=== PATIENT | female | born 1990 | race Caucasian/White ===

== ENCOUNTER 2017-09-25 07:19 | Day surgery (SDC) | payer OTHER ==
[~2017-09-25 07:19] MED LIST: Buffered Lidocaine 0.9% SYRIN* 5 ML/SYR SYRINGE INTRADERM ONE; Dexamethasone IV* 4 MG/ML 1 ML (4 MG) IV SLOW PU ONE; Famotidine IV* 10 MG/ML 2 ML (20 mg) IV ONE
[2017-09-25] MEDS ORDERED: Buffered Lidocaine 0.9% SYRIN* 5 ML/SYR SYRINGE ONE (07:35)
[2017-09-25] MEDS ORDERED: ceFAZolin 2 GM PREMIX (*) 2 GM/50 ML BAG IVPB ONE (07:35)
[2017-09-25] MEDS ORDERED: Famotidine IV* 10 MG/ML 2 ML (20 mg) ONE (07:35)
[2017-09-25] MEDS ORDERED: Dexamethasone IV* 4 MG/ML 1 ML (4 MG) ONE (07:35)
[2017-09-25] MEDS ORDERED: Ketorolac INJ* 30 MG/ML 1 ML VIAL ONE (07:35)
[2017-09-25] MEDS ORDERED: fentaNYL* 50 MCG/ML 5 ML VIAL (250 MCG VIAL) ONE (08:18)
[2017-09-25] MEDS ORDERED: Atracurium* 10 MG/ML 10 ML VIAL ONE (08:18)
[2017-09-25] MEDS ORDERED: Propofol* 10 MG/ML 20 ML BTL IV PUSH ONE (08:18)
[2017-09-25] MEDS ORDERED: Ondansetron INJ* 2 MG/ML VIAL ONE (08:18)
[2017-09-25] MEDS ORDERED: Midazolam* 1 MG/ML 10 ML VIAL (10 MG) ONE (08:18)
[2017-09-25] MEDS ORDERED: Lidocaine 2% PF * 5 ML VIAL ONE (08:19)
[2017-09-25] MEDS ORDERED: EPHEDrine (Pressors)* 50 MG/ML VIAL ONE (08:20)
[2017-09-25] MEDS ORDERED: Bupivacaine 0.25% SDV* 30 ML ONE (08:40)
[2017-09-25] MEDS ORDERED: Scopolamine 1.5 mg* PATCH ONE (08:40)
[2017-09-25] MEDS ORDERED: HYDROmorphone INJ* 1 MG/ML CARPUJECT SYRINGE IV PRN (08:41)
[2017-09-25] MEDS ORDERED: fentaNYL* 50 MCG/ML 2 ML VIAL (100 MCG VIAL) IV PRN (08:41)
[2017-09-25] MEDS ORDERED: DiMENhydriNATE IV* 50 MG/ML VIAL IV PUSH PRN (08:41)
[2017-09-25] MEDS ORDERED: Naloxone* 0.4 MG/ML 1 ML VIAL IV PRN (08:41)
[2017-09-25] MEDS ORDERED: oxyCODONE/Acetamin 5/325 MG* TAB PO PRN ×2 (08:41→09:57)
[2017-09-25] MEDS ORDERED: Ondansetron INJ* 2 MG/ML VIAL IV PRN (08:41)
[2017-09-25] MEDS ORDERED: Scopolamine 1.5 mg* PATCH TRANSDERM SCH (09:00)
[2017-09-25] MEDS ORDERED: Scopolamine PATCH Remove* 1 NOTE MISC PATCH OFF SCH (09:00)
[2017-09-25] MEDS ORDERED: fentaNYL* 50 MCG/ML 2 ML VIAL (100 MCG VIAL) ONE (09:08)
[2017-09-25] MEDS ORDERED: Glycopyrrolate IV* 0.2 MG/ML 1 ML VIAL ONE (09:32)
[2017-09-25] MEDS ORDERED: Neostigmine Methylsulfate* 2 MG/2 ML SYRINGE ONE (09:32)
[2017-09-25] MEDS ORDERED: oxyCODONE/Acetamin 5/325 MG* TAB ONE (10:08)
[2017-09-25 11:10] VITALS: BP 110/66
--- NOTE | 2017-09-26 00:31 | OP ---
CC: Yesi Macias NP * DATE OF OPERATION: 09/25/17 - SDS DATE OF : 89 SURGEON: Trevor Owens MD ENTRY EXAMINER: PAVEL Jung ANESTHESIOLOGIST: Dr. Lynch. ANESTHESIA: General anesthetic, local infiltration. PRE-OP DIAGNOSIS: Symptomatic cholelithiasis. POST-OP DIAGNOSIS: Symptomatic cholelithiasis. OPERATIVE PROCEDURE: Laparoscopic cholecystectomy. DESCRIPTION OF PROCEDURE: The patient was supine on the operating table. After adequate general anesthetic, compression stockings, Emelia Hugger warmer and intravenous antibiotics, the abdomen was prepped with antiseptic, draped in a sterile fashion. Local infiltrative anesthesia was administered and right upper quadrant incision was created. A 5-mm Visiport cannula was placed and insufflation was carried out with carbon dioxide. Additional cannulae were placed under direct vision; 5-mm supraumbilical and right anterior axillary line and 12-mm subxiphoid, these were all placed through small stab wounds under direct vision. Gallbladder was tented upward, areolar tissue was taken down off the cystic duct and cystic artery, which were readily identified, clipped and divided. The common duct was visualized and kept out of harm's way. The gallbladder was taken off the liver bed without any difficulty. There was no spillage. The gallbladder was removed through the subxiphoid port without any spillage. The incisions were closed with 5-0 Vicryl followed by Steri-Strips. Hemostasis was good. There were no complications. No drains. Pathologic specimen is gall-bladder. Sponge and instrument counts correct. Estimated blood loss less than 20 mL. [id number]/[facility] #: [id number] [facility]
== END 2017-09-25 11:01 | disposition home or self-care (01) ==
LOC: OR 07:19
PROVIDERS: ATTEND Surgery
DX: K80.10 Calculus of gallbladder with chronic cholecystitis without obstruction (principal); Z87.891 Personal history of nicotine dependence
CPT/HCPCS: 81025; 88304; A9270-GY; J0690; J1100; J1885; J2250; J2405; J2704; J3010

== ENCOUNTER 2019-02-03 18:01 | Inpatient (IN) | payer OTHER ==
[2019-02-03 18:57] LABS: Urine Benzodiazepine Screen None Detected (None Detect); Urine Opiates Screen None Detected (None Detect)
[2019-02-03] MEDS ORDERED: Promethazine INJ(RESTRICTED)* 25 MG/ML 1 ML VIAL IV ONE (19:38)
[2019-02-03] MEDS ORDERED: Nalbuphine* 10 MG/ML 1 ML VIAL IV ONE (19:38)
[2019-02-03] MEDS ORDERED: Dinoprostone* 10 MG VAG.SUPP VAGINAL ONE (19:38)
[2019-02-03] MEDS ORDERED: Buffered Lidocaine 1% SYRIN* 1 ML/SYRINGE INTRADERM ONE (19:38)
[2019-02-03] MEDS ORDERED: Lactated Ringers 1000 ML Bag* 1,000 ML IV ONE (19:38)
--- NOTE | 2019-02-03 19:53 | HP ---
General Information - Reason for Visit 28yo, , IUP@40+6, here for cervical ripening/IOL - General Information Maternal Age: 28 Grav: 2 Para: 1 SAB: 0 IEA: 0 Estimated Due Date: 01/28/19 Determined By: LMP Gestational Age in Weeks/Days: 40+6 Maternal Blood Type and Rh: O Positive - Results this Serology/RPR Result: Non-Reactive Rubella Result: Immune HBsAg Result: Negative HIV Result: Negative GBS Culture Result: Positive Past Medical History Delivery History: Hx Complicated Vaginal Delivery Delivery History Comment: G1 complicated by arrhythmia Pertinent Past Medical History: See Records - Obesity (BMI 34.1), GERD , herniated disc (lumbar) Past Medical History Comment: Depression/anxiety Pertinent Past Surgical History: See Records Past Surgical History Comment: Tonsillectomy Tympanostomy tubes Cholecystectomy Pertinent Family History: See Records Family History Comment: HTN Brother - MVA age 18 ID Breast cancer - Antepartal Records Antepartal Records: Reviewed, Complicated by: - Hip pain, GBS positive , + THC, Review of Systems CV Complaint: No Respiratory: Shortness of Breath: No Gastrointestinal: No Nausea/Vomiting, Normal Bowel Movement Genitourinary: No Dysuria, No Bleeding, No Leaking Fluid Musculoskeletal: No Complaint, No Epigastric Pain Neurological: No Headache, No Visual Changes Movement: Normal Exam Allergies/Adverse Reactions: Allergies MS Benzalkonium Chloride [From Oragel Mouth-Aid] Allergy (Verified 09/25/17 07: 44) Swelling Of Face,Lips,& Throat MS Benzocaine [From Oragel Mouth-Aid] Allergy (Verified 09/25/17 07:44) Swelling Of Face,Lips,& Throat MS Lactose Intolerance (GI) [Lactose Intolerance (GI)] Allergy (Verified 07:44) GI Upset MS Sulfa Antibiotics [Sulfa Antibiotics] Allergy (Verified 09/25/17 07:44) Rash MS Zinc [From Oragel Mouth-Aid] Allergy (Verified 09/25/17 07:44) Swelling Of Face,Lips,& Throat Temp 98.7, HR 104, RR 20, BP 116/72, O2 99 Lab Values - Entire Visit: Laboratory Tests 02/03/19 18:15 Urine Opiates Screen None detected Ur Barbiturates Screen None detected Ur Phencyclidine Scrn None detected Ur Amphetamines Screen None detected U Benzodiazepines Scrn None detected Urine Cocaine Screen None detected U Cannabinoids Screen None detected - Measurements Height: 5 ft 5.5 in Weight: 230 lb Weight in lbs: [phone] Body Mass Index (BMI): 37.7 Pre- Weight: 203 lb Weight Gained This : 27 lbs and 0 ozs - Exam Breast: Breast Exam Deferred CVA: No CVA Tenderness Extremities: No Edema Heart: Normal Rhythm/Heart Sounds HEENT: No Significant Findings Lungs: Clear Bilaterally Rectal: Rectal Exam Deferred Reflexes: DTR 2+ - Abdominal Exam Abdomen Exam: Non-Tender, Fundal Height Consistent with Dates - Ultrasound/Biophysical Profile Ultrasound Status: Not Done Targeted Exam Findings Estimated Weight: 8lbs Cervical Exam: Closed Effacement: 50% Station: -1 Presenting Part: Vertex Membrane Status: Intact Bleeding/Discharge: None EFM Findings - External Monitor Findings Baseline Heart Rate: 130 External Monitor Findings: Accelerations Present, No Pattern of Variable or Late Decelerations, Variability Moderate External Monitor Findings Comment: No evidence of metabolic acidemia Contractions: Irregular Assessment/Plan - Assessment , IUP@40+6 here for cervical ripening/IOL : GBS+, +THC, obesity (BMI 34) VSS VE unchanged from office IBOW No evidence of metabolic acidemia PARQ discussion about ripening method. - Obstetrical Risk Factors Obstetrical Risk Factors: GBS Positive, Post-Dates, Obesity - Plan Plan: Induction, Cervical Ripening, Admit - Anticipate Vaginal Delivery Plan Comment: Admit to L&D Pt and provider in agreement to place Cervidil. Cervidil per protocol now. Anticipate Pitocin for IOL and progression to active labor. - Date/Time of Admission Date of Admission: 02/03/19 Time of Admission: 19:30
[2019-02-03] MEDS ORDERED: Penicillin G Potassium IV* 5,000,000 UNITS in NS 0.9% 100 ML* 100 ML IVPB ONE (19:55)
[2019-02-03] MEDS ORDERED: Lactated Ringers 1000 ML Bag* 1,000 ML IV SCH (20:00)
--- NOTE | 2019-02-03 20:48 | PN ---
Progress Note - Progress Note Date of Service: 02/03/19 Note: Cervidil placed. Pt tolerated procedure well. Monitoring per protocol.
[2019-02-04] MEDS ORDERED: Nalbuphine* 10 MG/ML 1 ML VIAL IM PRN (03:06)
[2019-02-04] MEDS ORDERED: Promethazine INJ(RESTRICTED)* 25 MG/ML 1 ML VIAL IM PRN (03:08)
--- NOTE | 2019-02-04 04:10 | PN ---
Progress Note - Progress Note Date of Service: 02/04/19 Note: Pt feeling uncomfortable Requesting pain medication Plan for nubain/phenergan Monitor per protocol
--- NOTE | 2019-02-04 07:22 | PN ---
Progress Note - Progress Note Date of Service: 02/04/19 Note: S: Pt getting out of bath Feeling mild contractions, becoming more frequent Pt smiling, talking freely, but states contractions more uncomfortable O: BP 120/89, HR 88 FHR 130, moderate variability Contractions: q4 minutes A: VSS No evidence of metabolic acidosis Good resting tone VE deferred Cervidil in place Breakfast ordered P: Pt back on monitor to assess contraction pattern Oly Bean CNM to remove cervidil after 12 hours; will remove sooner if contraction pattern dictates Likely start Pitocin for IOL Anticipate progression to active labor
--- NOTE | 2019-02-04 08:15 | PN ---
Progress Note - Progress Note Date of Service: 02/04/19 Note: Barbara every 2-3 min, mod intensity Cervidil removed at 08am. Cervix: posterior, ? 3cm, 90%, vtx 0 Will start penicillin, observe for now Consider AROM or pitocin augmentation prn Pain medication options reviewed, deciding
[2019-02-04] MEDS ORDERED: OBEPIDURAL* 250 ML EPIDURAL ONE (09:15)
[2019-02-04 09:17] LABS: ABS Lymphocytes 1.2 10^3/ul (1.0-4.8); ABS Monocytes 0.9 10^3/ul (0-0.8); ABS Neutrophils 11.2 10^3/ul (1.5-7.7); Eosinophil % 0.2 %; Hematocrit 41 % (35-47); Hemoglobin 13.4 g/dL (12.0-16.0); Mean Corpuscular HGB Conc 33 g/dL (31-36); Mean Corpuscular Hemoglobin 27 pg (27-31); Mean Corpuscular Volume 84 fL (80-97); Mean Platelet Volume 9.1 fL (7.4-10.4); Platelet Count 277 10^3/uL (150-450); Red Blood Count 4.92 10^6 /uL (3.70-4.87); Red Cell Distribution Width 17 % (10.5-15); White Blood Count 13.3 10^3/uL (3.5-10.8)
[2019-02-04] MEDS ORDERED: Lactated Ringers 1000 ML Bag* 1,000 ML IV ONE (10:13)
[2019-02-04] MEDS ORDERED: Phenylephrine 40 MCG/ML SYRINGE IV PUSH PRN (10:13)
[2019-02-04] MEDS ORDERED: Sodium Citrate/Citric Acid* 15 ML UDC PO PRN (10:13)
[2019-02-04] MEDS ORDERED: OBEPIDURAL* 250 ML EPIDURAL SCH (11:00)
[2019-02-04] MEDS ORDERED: Lactated Ringers 1000 ML Bag* 1,000 ML IV SCH ×2 (11:00→13:00)
[2019-02-04] MEDS ORDERED: Oxytocin in LR* 20 UNITS/1,000 ML BAG IVPB ONE (11:40)
--- NOTE | 2019-02-04 12:02 | PROCNOTE ---
[facility]: Delivery Note - Delivery A Date of : 02/04/19 Time of : 11:33 [place] Sex: Female Score 1 Minute: 9 Score 5 Minutes: 9 Gestational Age in Weeks and Days at Delivery: 41 Weeks and 0 Days Delivery Method: Spontaneous Vaginal Labor: Induced - with Cervidil Did Patient attempt ?: N/A, No Previous Amniotic Fluid: Clear Estimated Blood Loss: 200 Anesthesia/Analgesia: CEI for Labor Anesthesia Comment: Dr. Hinds Delivered By: Francisca Bean - Nursery Level of Nursery: Regular/Bedside - Perineum Perineal Injury: Perineal Laceration, 1st Degree Perineal Injury Comment: repair with 3-0 ccg under 1% lidocaine local Perineal Repair: By Delivering Practioner - Events Delivery Events of Note: Pitocin Only After Delivery, Partial Course of Antibiotics - Additional Delivery Notes Additional Delivery Notes: SVB LFC, OA, over 1st deg lac. after 17 min second stage. Total length of labor , 4'39" Placenta Nam. Fundus firm, IV with pitocin running. Mother and baby in good condition
[2019-02-04] MEDS ORDERED: Glycerin ADULT SUPP PR PRN (12:03)
[2019-02-04] MEDS ORDERED: Lidocaine 1% INJ* 10 MG/ML 30 ML SDV ONE (12:29)
[2019-02-04] MEDS ORDERED: Penicillin G Potassium IV* 2,500,000 UNITS in NS 0.9% 100 ML* 100 ML IVPB SCH (13:00)
[2019-02-04] MEDS ORDERED: Oxytocin in LR* 20 UNITS/1,000 ML BAG IVPB SCH (13:00)
[2019-02-04] MEDS: Witch Hazel PAD* JAR TOPICAL PRN (13:07)
[2019-02-04] MEDS: Ibuprofen TAB* 600 MG PO PRN ×2 (13:07→21:50)
[2019-02-04] MEDS: Dibucaine 1% 28.35 GM TUBE PR PRN (13:07)
[2019-02-04] MEDS: Docusate CAP* 100 MG PO SCH ×2 (15:20→21:59)
[2019-02-04] MEDS: Acetaminophen TAB* 325 MG PO PRN (15:21)
[2019-02-05 06:57] LABS: Hematocrit 32 % (35-47); Hemoglobin 10.3 g/dL (12.0-16.0); Mean Corpuscular HGB Conc 33 g/dL (31-36); Mean Corpuscular Hemoglobin 27 pg (27-31); Mean Corpuscular Volume 83 fL (80-97); Mean Platelet Volume 8.9 fL (7.4-10.4); Platelet Count 207 10^3/uL (150-450); Red Blood Count 3.79 10^6 /uL (3.70-4.87); Red Cell Distribution Width 17 % (10-15); White Blood Count 11.1 10^3/uL (3.5-10.8)
[2019-02-05] MEDS: Ibuprofen TAB* 600 MG PO PRN ×2 (09:00→21:32)
[2019-02-05] MEDS ORDERED: Ferrous Gluconate TAB* 324 MG TAB PO SCH (09:00)
[2019-02-05] MEDS: Docusate CAP* 100 MG PO SCH ×3 (09:31→21:32)
[2019-02-05] MEDS: Dibucaine 1% 28.35 GM TUBE PR PRN (09:32)
[2019-02-05] MEDS: Witch Hazel PAD* JAR TOPICAL PRN (09:33)
[2019-02-05] MEDS: Acetaminophen TAB* 325 MG PO PRN (14:38)
[2019-02-06] MEDS: Ibuprofen TAB* 600 MG PO PRN (08:39)
[2019-02-06] MEDS: Docusate CAP* 100 MG PO SCH (08:39)
[2019-02-06 09:11] VITALS: BP 124/85
== END 2019-02-06 11:45 | disposition home or self-care (01) | DRG 560 ==
LOC: MCHOBOUT 18:01 → MCHOB 19:45
PROVIDERS: ADMIT Advanced Practice Midwife; ATTEND Midwife
PROC: 10E0XZZ Delivery of Products of Conception, External Approach (ICD-10-PCS; principal; 2019-02-04)
PROC: 3E033VJ Introduction of Other Hormone into Peripheral Vein, Percutaneous Approach (ICD-10-PCS; 2019-02-04)
PROC: 0HQ9XZZ Repair Perineum Skin, External Approach (ICD-10-PCS; 2019-02-04)
DX: O48.0 Post-term pregnancy (principal); Z37.0 Single live birth; Z3A.41 41 weeks gestation of pregnancy; O99.214 Obesity complicating childbirth; O99.344 Other mental disorders complicating childbirth; F41.8 Other specified anxiety disorders; O99.824 Streptococcus B carrier state complicating childbirth; O70.0 First degree perineal laceration during delivery
CPT/HCPCS: 36415; 80307; 85025; 85027; 86850; 86900; 86901; A9270-GY; J2300; J2540; J2550